=== PATIENT | male | born 2000 | race Caucasian/White ===

== ENCOUNTER 2020-02-09 14:15 | Emergency (ER) | payer OTHER ==
--- NOTE | 2020-02-09 15:21 | EDM.PDOC ---
ED HPI GENERAL MEDICAL PROBLEM - General Chief Complaint: ENT Problem Stated Complaint: MOUTH SORES Time Seen by Provider: 02/09/20 14:58 Source of Information: Reports: Patient History Limitations: Reports: No Limitations - History of Present Illness INITIAL COMMENTS - FREE TEXT/NARRATIVE: Patient is a 19-year-old male who presents to the emergency department with complaints of a painful sore to the right lateral aspect of his tongue. 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 He had an episode similar to this a few months back and was given a pill and a mouthwash. He was told at that time that it was a virus that was causing it. He is unsure which medications specifically he was on. This episode began approximately 2 days ago. It is increasingly painful when he eats. He denies any other chronic health problems. Oral/Mouth Pain Score (Numeric/FACES): 7 - Related Data Allergies Allergy/AdvReac Type Severity Reaction Status Date / Time No Known Allergies Allergy Verified 02/09/20 14:46 Home Meds: Home Meds Acyclovir 400 mg PO TID 7 Days #21 tablet 02/09/20 [Rx] Diphenhyd/Lidocaine/Nystatin [First-Bxn Mouthwash] 237 ml MM TID PRN #237 ml [Rx] Past Medical History - Past Health History Medical/Surgical History: Denies Medical/Surgical History Social & Family History - Tobacco Use Smoking Status *Q: Never Smoker - Caffeine Use Caffeine Use: Reports: Soda - Recreational Drug Use Recreational Drug Use: No ED ROS ENT - Review of Systems Review Of Systems: Comprehensive ROS is negative, except as noted in HPI. ED EXAM, ENT - Physical Exam Exam: See Below Exam Limited By: No Limitations General Appearance: Alert, WD/WN, No Apparent Distress Mouth/Throat: Normal Gums, Normal Oropharynx, Normal Teeth, Other (Small cold sore to right lateral commissure of the lips. 0.5 cm lesion to the right lateral tip of the tongue.) Course - Vital Signs Last Recorded V/S: Last Vital Signs Temp 98.2 F 02/09/20 14:46 Pulse 63 02/09/20 14:46 Resp 14 02/09/20 14:46 BP 124/69 02/09/20 14:46 Pulse Ox 100 05/23/20 14:46 Departure - Departure Time of Disposition: 15:16 Disposition: Home, Self-Care 01 Condition: Good Clinical Impression: Oral herpes simplex infection - Discharge Information *PRESCRIPTION DRUG MONITORING PROGRAM REVIEWED*: No *COPY OF PRESCRIPTION DRUG MONITORING REPORT IN PATIENT HUGO: No Prescriptions: Acyclovir 400 mg PO TID 7 Days #21 tablet Diphenhyd/Lidocaine/Nystatin [First-Bxn Mouthwash] 237 ml MM TID PRN #237 ml PRN Reason: Other Instructions: Cold Sore, [id number] Referrals: PCP,Not In Area [Primary Care Provider] - Forms: ED Department Discharge Additional Instructions: You were seen in the emergency department for a sore on your tongue. Your exam was consistent with a diagnosis of herpes simplex virus, "cold sores". A prescription for acyclovir which is an antiviral and Magic mouthwash which is a topical pain medication [facility]. Uses medications as prescribed. As we discussed, if this becomes an ongoing issue for you, you should follow-up in the clinic to discuss ongoing management of this condition. Return to the ER as needed. Sepsis Event Note - Evaluation Sepsis Screening Result: No Definite Risk - Focused Exam Vital Signs: Vital Signs Temp Pulse Resp BP Pulse Ox 02/09/20 14:46 98.2 F 63 14 124/69 100 Date Exam was Performed: 02/09/20 Time Exam was Performed: 15:28
== END 2020-02-09 15:51 | disposition home or self-care (01) ==
LOC: JD.ED 14:15
DX: B00.1 Herpesviral vesicular dermatitis (principal); Z79.899 Other long term (current) drug therapy
CPT/HCPCS: 99282; 99283